=== PATIENT | female | born 1945 | race Hispanic/Latino ===

== ENCOUNTER → 2022-04-23 | Outpatient (CLI) | payer MEDICARE ==
[~2022-04-23] MED LIST: IOPAMIDOL 370 MG/ML 100 ML INFUS..BTL INJ ONE
[2022-04-23 11:50] LABS: CREATININE, SERUM 0.83 mg/dL (0.57-1.11)
== END ==
LOC: CT 10:39
PROVIDERS: ATTEND Family Medicine
DX: Z09 Encounter for follow-up examination after completed treatment for conditions other than malignant neoplasm (principal); R22.2 Localized swelling, mass and lump, trunk
CPT/HCPCS: 36415; 71260; 82565; 84520; Q9967

== ENCOUNTER → 2023-02-04 | Outpatient (REF) | payer MEDICARE ==
[~2023-02-04] MED LIST changes: +ACETAMINOPHEN-1 EAC4 PO; +CEFDINIR300 MG PO; -IOPAMIDOL 370 MG/ML 100 ML INFUS..BTL INJ ONE; +ONDANSETRON ODT4 MG PO
== END ==
LOC: MRI 07:48
PROVIDERS: ATTEND Nurse Practitioner Family
DX: R20.2 Paresthesia of skin (principal); M54.2 Cervicalgia; M54.6 Pain in thoracic spine; M79.602 Pain in left arm
CPT/HCPCS: 72141; 72146

== ENCOUNTER 2023-12-22 00:51 | Emergency (ER) | payer MEDICARE ==
[~2023-12-22] VITALS: Ht 167.6 cm; Wt 68.0 kg
[2023-12-22 01:00] VITALS: TEMP 98.8
[2023-12-22 01:37] LABS: COLOR,URINE YELLOW (YELLOW)
[2023-12-22 01:38] LABS: BILIRUBIN,URINE NEGATIVE (NEGATIVE); CLARITY,URINE CLOUDY (CLEAR); GLUCOSE, URINE NEGATIVE (NEGATIVE); KETONES,URINE NEGATIVE (NEGATIVE); LEUKOCYTE ESTERASE ,URINE SMALL (NEGATIVE); NITRITE,URINE NEGATIVE (NEGATIVE); PH,URINE 6 (5 - 7); PROTEIN,URINE DIPSTICK TRACE (NEGATIVE); URINE UROBILINOGEN 0.2 mg/dL (0.2 - 1)
[2023-12-22 01:50] LABS: BACTERIA,URINE MANY /HPF; EPITHELIAL CELLS,URINE FEW /LPF; WBC,URINE (MAN) >50 /HPF (0-5)
[2023-12-22 03:00] VITALS: PULSE 69; RESP 16; O2SAT 98
[2023-12-22] MEDS ORDERED: CIPRO500 MG PO (03:33)
[2023-12-22] MEDS ORDERED: PYRIDIUM100 MG PO (03:33)
== END 2023-12-22 03:40 | disposition home or self-care (01) ==
LOC: ER 00:54
DX: R30.0 Dysuria (principal); N39.0 Urinary tract infection, site not specified; R10.30 Lower abdominal pain, unspecified; K57.90 Diverticulosis of intestine, part unspecified, without perforation or abscess without bleeding; I10 Essential (primary) hypertension; E11.9 Type 2 diabetes mellitus without complications
CPT/HCPCS: 74176; 81001; 87086; 87186; 99283